=== PATIENT | female | born 1945 | race Caucasian/White ===

== ENCOUNTER 2025-09-26 01:10 | Inpatient (IN) | payer MEDICARE, MEDICAID ==
[~2025-09-26] VITALS: Ht 172.7 cm; Wt 67.0 kg
[2025-09-26] MEDS ORDERED: 0.9% SODIUM CHLORIDE 10 ML SYRINGE IVP PRN (01:30)
[2025-09-26] MEDS: SODIUM CHLORIDE 0.9% 2,000 ML IV ONE (01:43)
[2025-09-26] MEDS: ACETAMINOPHEN 1000 MG/ISO-OSM 100 ML IV ONE (01:43)
[2025-09-26 01:47] LABS: PLATELET COUNT (AUTO) 269 K/uL (150-450); RED BLOOD CELL COUNT(AUTO) 4.57 MIL/uL (4.00-5.20); RED CELL DISTRIBUTION WIDTH 16.3 % (11.5-14.5); WHITE BLOOD COUNT (AUTO) 19.3 K/uL (4.5-11.0)
[2025-09-26 01:52] LABS: COVID AG,FIA SOURCE NASAL SWAB
[2025-09-26 01:59] LABS: ASPARTATE AMINOTRANSFERASE 115 U/L (15-37); TOTAL PROTEIN, SERUM 8.3 g/dL (6.4-8.2)
[2025-09-26 02:03] LABS: CALCIUM, TOTAL 9.7 mg/dL (8.8-10.5); CREATININE 2.27 mg/dL (0.60-1.30); GLOMERULAR FILTR. RATE CALC 21 mL/min (>60); SODIUM SERUM 159 mmol/L (136-145)
[2025-09-26 02:05] LABS: GLUCOSE,RANDOM 422 mg/dL (70-110); LACTIC ACID 3.4 mmol/L (0.4-2.0); TROPONIN I-HIGH SENSITIVITY 402 ng/L (<51); UREA NITROGEN, BLOOD 104 mg/dL (7-18)
[2025-09-26 02:22] LABS: INFLUENZA TYPE A NEGATIVE FOR TYPE A (NEGATIVE); INFLUENZA TYPE B NEGATIVE FOR TYPE B (NEGATIVE); SARS-COV2 (COVID) ANTIGEN,FIA Negative (Negative)
[2025-09-26] MEDS: CEFEPIME HCL 1 GM in DEXTROSE 5%-WATER 50 ML IV ONE (02:27)
[2025-09-26] MEDS ORDERED: EMPA10TA3 PO (03:29)
[2025-09-26] MEDS ORDERED: METF-1211 PO (03:29)
[2025-09-26] MEDS ORDERED: ROSU20TA98 PO (03:29)
[2025-09-26] MEDS ORDERED: FURO40TA6 PO (03:29)
[2025-09-26] MEDS ORDERED: ASPI-1450 PO (03:29)
[2025-09-26] MEDS ORDERED: LOSA-381 PO (03:29)
[2025-09-26] MEDS ORDERED: SPIR-37 PO (03:29)
[2025-09-26] MEDS ORDERED: METO-325 PO (03:29)
[2025-09-26] MEDS ORDERED: ONDANSETRON HCL 4 MG/2 ML VIAL IVP PRN (04:00)
[2025-09-26] MEDS ORDERED: DEXTROSE 50%-WATER 25 GM/50 ML SYRINGE IVP PRN (04:00)
[2025-09-26] MEDS ORDERED: ACETAMINOPHEN 325 MG TABLET PO PRN (04:00)
[2025-09-26 04:16] LABS: TROPONIN I-HIGH SENSITIVITY 349 ng/L (<51)
[2025-09-26] MEDS: INSULIN GLARGINE,HUM.REC.ANLOG 100 UNITS/ML SQ SCH (04:51)
[2025-09-26] MEDS: RINGERS SOLUTION,LACTATED 1,000 ML IV ONE (04:51)
[2025-09-26] MEDS: *CLINICAL-CEFEPIME DOSING CLINICAL ONE (04:59)
[2025-09-26 07:35] LABS: GLUCOMETER DEV NAME(LOC) ERT.7; GLUCOSE,POINT OF CARE 336 MG/DL (70-110)
[2025-09-26] MEDS: ASPIRIN 81 MG CHEWABLE TABLET PO SCH (07:44)
[2025-09-26] MEDS: DOCUSATE SODIUM 100 MG CAPSULE PO SCH (07:44)
[2025-09-26] MEDS: HEPARIN SODIUM,PORCINE 5,000 UNITS/ML VIAL SQ SCH (07:48)
[2025-09-26 09:05] VITALS: BP 138/51; PULSE 87; RESP 16; TEMP 97.8; O2SAT 95
[2025-09-26] MEDS: INSULIN LISPRO 100 UNITS/ML SQ ONE (09:53)
[2025-09-26 11:56] LABS: GLUCOMETER DEV NAME(LOC) 5S.2E; GLUCOSE,POINT OF CARE 325 MG/DL (70-110)
[2025-09-26 12:08] VITALS: BP 114/67; PULSE 86; RESP 17; TEMP 98; O2SAT 95
[2025-09-26] MEDS: INSULIN LISPRO 100 UNITS/ML SQ PRN (12:50)
[2025-09-26 12:51] LABS: GLUCOMETER DEV NAME(LOC) 5N.1D; GLUCOSE,POINT OF CARE 339 MG/DL (70-110)
[2025-09-26 14:57] LABS: APPEARANCE,URINE CLEAR (CLEAR); GLUCOSE, URINE (UA) >=1000 mg/dL (NEGATIVE); LEUKOCYTE ESTERASE ,URINE NEGATIVE (NEGATIVE); NITRATE,URINE NEGATIVE (NEGATIVE); OCCULT BLOOD,URINE MODERATE (NEGATIVE); SPECIFIC GRAVITIY, URINE 1.029 (1.003-1.030)
[2025-09-26 15:03] LABS: YEAST,URINE Moderate /HPF (None Seen)
[2025-09-26] MEDS: *CLINICAL-LEVOFLOXACIN IVPB DOSING CLINICAL ONE (15:03)
[2025-09-26] MEDS: RINGERS SOLUTION,LACTATED 1,000 ML IV SCH (15:24)
[2025-09-26 15:34] LABS: TROPONIN I-HIGH SENSITIVITY 281 ng/L (<51)
[2025-09-26 15:58] VITALS: BP 110/66; PULSE 71; RESP 18; TEMP 99; O2SAT 95
[2025-09-26] MEDS ORDERED: MetroNIDAZOLE 750 MG/NACL 150 ML IV SCH (16:00)
[2025-09-26] MEDS ORDERED: SODIUM CHLORIDE 0.9% 250 ML IV ONE (16:50)
[2025-09-26] MEDS: LEVOFLOXACIN 750 MG/D5% WATER 150 ML IV SCH (16:55)
[2025-09-26 19:44] VITALS: BP 142/59; PULSE 121; RESP 20; TEMP 101.1; O2SAT 99
[2025-09-26] MEDS: ACETAMINOPHEN 1000 MG/ISO-OSM 100 ML IV PRN (21:36)
[2025-09-26 23:31] VITALS: BP 109/53; PULSE 104; RESP 20; TEMP 99; O2SAT 98
[2025-09-27 04:02] VITALS: BP 126/63; PULSE 95; RESP 18; TEMP 98.6; O2SAT 97
[2025-09-27] MEDS ORDERED: CEFEPIME HCL 1 GM in DEXTROSE 5%-WATER 50 ML IV SCH (06:00)
[2025-09-27] MEDS ORDERED: CEFEPIME HCL 0.5 GM in DEXTROSE 5%-WATER 50 ML IV SCH (06:00)
[2025-09-27 07:04] LABS: PLATELET COUNT (AUTO) 165 K/uL (150-450); RED BLOOD CELL COUNT(AUTO) 4.00 MIL/uL (4.00-5.20); RED CELL DISTRIBUTION WIDTH 16.7 % (11.5-14.5); WHITE BLOOD COUNT (AUTO) 13.4 K/uL (4.5-11.0)
[2025-09-27 07:14] LABS: CALCIUM, TOTAL 9.1 mg/dL (8.8-10.5); CREATININE 1.13 mg/dL (0.60-1.30); GLOMERULAR FILTR. RATE CALC 47.0 mL/min (>60); GLUCOSE,RANDOM 137.0 mg/dL (70-110); UREA NITROGEN, BLOOD 73.0 mg/dL (7-18)
[2025-09-27 07:33] LABS: SODIUM SERUM 168.0 mmol/L (136-145)
[2025-09-27 08:08] VITALS: BP 119/73; PULSE 94; RESP 18; TEMP 97.9; O2SAT 98
[2025-09-27] MEDS ORDERED: ASPIRIN 81 MG CHEWABLE TABLET PO SCH (09:00)
[2025-09-27 12:05] VITALS: BP 115/63; PULSE 95; RESP 18; TEMP 97.4; O2SAT 97
[2025-09-27] MEDS: MORPHINE SULFATE 4 MG/ML SYRINGE IVP PRN (16:15)
[2025-09-27 16:34] VITALS: BP 126/65; PULSE 99; RESP 18; TEMP 97.7; O2SAT 96
[2025-09-27] MEDS ORDERED: LORazepam 2 MG/ML VIAL ONE (17:02)
[2025-09-27] MEDS: LORazepam 2 MG/ML VIAL IM ONE (17:09)
== END 2025-09-27 17:00 | DRG 871 ==
LOC: EMS 01:12 → EDH 03:47 → 5S 08:10
PROVIDERS: ADMIT Internal Medicine; ATTEND Internal Medicine
DX: A41.9 Sepsis, unspecified organism (principal); J96.01 Acute respiratory failure with hypoxia; L89.154 Pressure ulcer of sacral region, stage 4; N17.0 Acute kidney failure with tubular necrosis; R57.9 Shock, unspecified; E11.65 Type 2 diabetes mellitus with hyperglycemia; I10 Essential (primary) hypertension; E78.5 Hyperlipidemia, unspecified; E86.0 Dehydration; Z20.822 Contact with and (suspected) exposure to COVID-19; F03.90 Unspecified dementia, unspecified severity, without behavioral disturbance, psychotic disturbance, mood disturbance, and anxiety; Z66 Do not resuscitate; R56.9 Unspecified convulsions; Z51.5 Encounter for palliative care; Z74.01 Bed confinement status; Z86.16 Personal history of COVID-19; Z88.0 Allergy status to penicillin; Z88.2 Allergy status to sulfonamides; Z91.041 Radiographic dye allergy status; Z95.0 Presence of cardiac pacemaker; Z95.2 Presence of prosthetic heart valve
CPT/HCPCS: 71045; 80048; 80076; 81001; 82962; 83605; 83735; 83880; 84145; 84484; 85025; 87040; 87081; 87086; 87804; 92610; 93005; 93306; 96365; 96367; 99291; G0378; J0131; J0692; J1644; J1815; J1956; J2060; J2270; J3490; J7050; J7060; J7120; 36415-L1; 36415-TC